=== PATIENT | male | born 1975 | race Caucasian/White ===

== ENCOUNTER → 2023-07-06 12:31 | Outpatient (CLI) | payer OTHER, SELFPAY | LOC: WC 12:50 | PROVIDERS: PCP Internal Medicine; Referring Provider Family Medicine; Visit Provider Surgery | DX: T23.321A Burn of third degree of single right finger (nail) except thumb, initial encounter (principal); T31.0 Burns involving less than 10% of body surface; X19.XXXA Contact with other heat and hot substances, initial encounter; Z87.891 Personal history of nicotine dependence | CPT/HCPCS: 99203; 99213 ==

== ENCOUNTER → 2023-07-20 14:39 | Outpatient (CLI) | payer OTHER, SELFPAY | PROVIDERS: PCP Internal Medicine; Referring Provider Family Medicine; Visit Provider Surgery | DX: T23.321A Burn of third degree of single right finger (nail) except thumb, initial encounter (principal); T31.0 Burns involving less than 10% of body surface | CPT/HCPCS: 99212; 99213 ==

== ENCOUNTER → 2023-08-10 14:24 | Outpatient (CLI) | payer OTHER, SELFPAY | PROVIDERS: PCP Internal Medicine; Referring Provider Family Medicine; Visit Provider Surgery | DX: S61.202D Unspecified open wound of right middle finger without damage to nail, subsequent encounter (principal) | CPT/HCPCS: 87070; 87075; 87077; 87186; 87205 ==

== ENCOUNTER → 2023-08-17 15:05 | Outpatient (CLI) | payer OTHER, SELFPAY | PROVIDERS: PCP Internal Medicine; Referring Provider Internal Medicine; Visit Provider Physician Assistant | DX: T23.321A Burn of third degree of single right finger (nail) except thumb, initial encounter (principal); T31.0 Burns involving less than 10% of body surface; R23.4 Changes in skin texture | CPT/HCPCS: 16020; 99213 ==

== ENCOUNTER → 2023-08-24 14:40 | Outpatient (CLI) | payer OTHER, SELFPAY | PROVIDERS: PCP Internal Medicine; Referring Provider Internal Medicine; Visit Provider Surgery | DX: T23.321A Burn of third degree of single right finger (nail) except thumb, initial encounter (principal); T31.0 Burns involving less than 10% of body surface | CPT/HCPCS: 16020; 99213 ==

== ENCOUNTER → 2023-08-31 14:26 | Outpatient (CLI) | payer OTHER, SELFPAY | PROVIDERS: PCP Internal Medicine; Referring Provider Family Medicine; Visit Provider Surgery | DX: S61.202A Unspecified open wound of right middle finger without damage to nail, initial encounter (principal); L98.8 Other specified disorders of the skin and subcutaneous tissue | CPT/HCPCS: 11042 ==

== ENCOUNTER → 2023-09-08 08:49 | Outpatient (CLI) | payer OTHER, SELFPAY | PROVIDERS: PCP Internal Medicine; Referring Provider Family Medicine; Visit Provider Surgery | DX: S61.202A Unspecified open wound of right middle finger without damage to nail, initial encounter (principal); L98.8 Other specified disorders of the skin and subcutaneous tissue | CPT/HCPCS: 99212; 99213 ==

== ENCOUNTER → 2023-09-15 14:32 | Outpatient (CLI) | payer OTHER, SELFPAY | PROVIDERS: PCP Internal Medicine; Referring Provider Family Medicine; Visit Provider Surgery | DX: S61.202A Unspecified open wound of right middle finger without damage to nail, initial encounter (principal); L98.8 Other specified disorders of the skin and subcutaneous tissue; R23.4 Changes in skin texture; Z79.2 Long term (current) use of antibiotics | CPT/HCPCS: 87070; 87077; 87186; 87205; 97597; 99213 ==

== ENCOUNTER → 2023-09-22 15:00 | Outpatient (CLI) | payer OTHER, SELFPAY | PROVIDERS: PCP Internal Medicine; Referring Provider Family Medicine; Visit Provider Surgery | DX: S61.202A Unspecified open wound of right middle finger without damage to nail, initial encounter (principal); L98.8 Other specified disorders of the skin and subcutaneous tissue; R23.4 Changes in skin texture | CPT/HCPCS: 99213 ==

== ENCOUNTER → 2023-09-28 14:36 | Outpatient (CLI) | payer OTHER, SELFPAY | PROVIDERS: PCP Internal Medicine; Referring Provider Internal Medicine; Visit Provider Surgery | DX: S61.202A Unspecified open wound of right middle finger without damage to nail, initial encounter (principal); L98.8 Other specified disorders of the skin and subcutaneous tissue | CPT/HCPCS: 99212; 99213 ==

== ENCOUNTER → 2023-10-11 14:06 | Outpatient (CLI) | payer OTHER, SELFPAY | PROVIDERS: PCP Internal Medicine; Referring Provider Family Medicine; Visit Provider Surgery | DX: S61.202A Unspecified open wound of right middle finger without damage to nail, initial encounter (principal); L98.8 Other specified disorders of the skin and subcutaneous tissue; Z87.891 Personal history of nicotine dependence | CPT/HCPCS: 99212; 99213 ==